=== PATIENT | female | born 1940 | race Caucasian/White ===

== ENCOUNTER 2024-04-06 15:51 | Emergency (ER) | payer MEDICARE ==
[~2024-04-06] VITALS: Ht 160 cm; Wt 54.0 kg
[2024-04-06 15:52] VITALS: TEMP 98.4; O2SAT 99
[2024-04-06 16:09] VITALS: BP 143/70; PULSE 82; RESP 16; O2SAT 100
[2024-04-06] MEDS: LIDOCAINE HCL 1% 20ML VIAL INFIL ONE (17:00)
[2024-04-06] MEDS: TETANUS, DIPHTHERIA, PERTUSSIS VAC/PF 0.5ML (>10YR OLD) IM ONE (17:02)
== END 2024-04-06 18:48 | disposition home or self-care (01) ==
LOC: ER 15:51
DX: S01.111A Laceration without foreign body of right eyelid and periocular area, initial encounter (principal); W01.0XXA Fall on same level from slipping, tripping and stumbling without subsequent striking against object, initial encounter; Z86.39 Personal history of other endocrine, nutritional and metabolic disease; Y93.89 Activity, other specified; Y92.89 Other specified places as the place of occurrence of the external cause; Y99.9 Unspecified external cause status
CPT/HCPCS: 99283; 90715; 12011; 90471; J3490